=== PATIENT | female | born 1925 | race Caucasian/White ===

== ENCOUNTER 2017-03-05 14:29 | Outpatient (CLI) | payer MEDICARE, BC ==
--- NOTE | 2017-03-05 20:48 | MRI ---
MRI BRAIN WITH AND WITHOUT CONTRAST: 03/05/17 Multiplanar and multisequential imaging of brain obtained. Postcontrast images were obtained after the administration of 10 mL of Multihance IV. HISTORY: Followup meningioma. New onset of bilateral eye pressure. Comparison made to MRI of brain of 11/16/15. 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 This meningioma is unchanged in size and appearance when compared to the prior study. Measurements are unchanged, recorded at approximately 3.2 AP dime nsion x 2.0 width in the axial plane and approximately 2.0 cm craniocaudal in the coronal plane. The se measurements are stable from the 11/16/15 exam. There is mild cortical atrophy. Mild chronic ischemic white matter change. No evidence of restricted diffusion. No other evidence of mass. No significant edema. The visualized internal carotid arteri es, cerebral arteries and basilar arteries show flow voids. IMPRESSION: 1. Stable planum sphenoidale meningioma. 2. Mild chronic ischemic white matter changes and mild cortical volume loss which appears stabl e. 1. POS: [facility]
== END 2017-03-05 14:30 | disposition home or self-care (01) ==
LOC: TBSIIMAG 14:29
PROVIDERS: ATTEND Neurological Surgery
DX: D32.9 Benign neoplasm of meninges, unspecified (principal); G93.89 Other specified disorders of brain
CPT/HCPCS: 70553